=== PATIENT | male | born 1965 | race Caucasian/White ===

== ENCOUNTER 2016-11-28 11:46 | Inpatient (IN) | payer OTHER ==
[2016-11-28 12:06] VITALS: BMI 33.3
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
[2016-11-28] MEDS ORDERED: MAGNESIUM CITRATE 300 ML BOTTLE PO PRN (13:41)
[2016-11-28] MEDS ORDERED: MAGNESIUM HYDROX 2400MG/30ML ORAL SUSPENSION 30 ML CUP PO PRN (13:41)
[2016-11-28] MEDS ORDERED: IBUPROFEN 400 MG TABLET (FP) PO PRN (13:41)
[2016-11-28] MEDS ORDERED: MAG HYDROX/AL HYDROX/SIMETH 30 ML UNIT-DOSE CUP PO PRN (13:41)
[2016-11-28] MEDS ORDERED: ACETAMINOPHEN 325 MG TABLET (FP) PO PRN (13:41)
[2016-11-28] MEDS ORDERED: guaiFENesin/D-METHORPHAN HB 10 ML UNIT-DOSE CUPS PO PRN (13:41)
[2016-11-28] MEDS ORDERED: hydrOXYzine PAMOATE 50 MG CAPSULE (FP) PO PRN (13:41)
[2016-11-28] MEDS ORDERED: P-EPHED 60MG/TRIPROLIDI 2.5MG TABLET PO PRN (13:41)
[2016-11-28] MEDS ORDERED: LOPERAMIDE HCL 2 MG CAPSULE PO PRN (13:41)
[2016-11-28] MEDS ORDERED: NICOTINE POLACRILEX 2 MG GUM BUC PRN (13:41)
[2016-11-28] MEDS ORDERED: MENTHOL/PHENOL 1 EACH UD MM PRN (13:41)
[2016-11-28] MEDS ORDERED: METHADONE HCL 10 MG TABLET (FOR DETOX USE ONLY) PO ONE ×2 (13:50→23:00)
[2016-11-28] MEDS: diazePAM 5 MG TABLET PO PRN ×3 (14:40→22:55)
[2016-11-28] MEDS: NICOTINE 21 MG/24 HOURS TOPICAL PATCH TD SCH (14:42)
[2016-11-28 16:03] LABS: URINE APPEARANCE CLEAR; URINE BILIRUBIN NEGATIVE (NEGATIVE); URINE BLOOD NEGATIVE (NEGATIVE); URINE COLOR YELLOW; URINE GLUCOSE (UA) NEGATIVE (NEGATIVE); URINE KETONE NEGATIVE (NEGATIVE); URINE LEUK ESTERASE NEGATIVE (NEGATIVE); URINE NITRITE NEGATIVE (NEGATIVE); URINE PROTEIN NEGATIVE (NEGATIVE); URINE UROBILINOGEN NEGATIVE E.U./dl (0.2-1.0)
[2016-11-28] MEDS: diphenhydrAMINE HCL 50 MG CAPSULE PO PRN (22:27)
[2016-11-28] MEDS: THIAMINE HCL 100 MG TABLET (FP) PO SCH (22:27)
[2016-11-29] MEDS: diazePAM 5 MG TABLET PO PRN ×4 (05:54→22:40)
[2016-11-29 09:07] LABS: HIV 1 & 2 AB NEGATIVE; HIV 1 AGp24 NEGATIVE
[2016-11-29] MEDS ORDERED: METHADONE HCL 10 MG TABLET (FOR DETOX USE ONLY) PO ONE (10:00)
[2016-11-29 10:36] LABS: MCH 28.7 pg (25.7-33.7); MCHC 32.1 g/dl (32.0-35.9); MEAN CELL VOLUME 89.3 fl (80-96); MEAN PLT VOLUME 8.9 fl (7.5-11.1); PLATELET COUNT 192 K/MM3 (134-434); RDW 13.5 % (11.9-15.9); WHITE BLOOD COUNT 3.5 K/mm3 (4.0-10.0)
--- NOTE | 2016-11-29 10:39 | PN ---
BHS COWS - Scale Resting Pulse: 0= [place] 80 or Below Sweatin= Chills/Flushing Restless Observation: 3= Extraneous Movement Pupil Size: 2= Moderately Dilated Bone or Joint Aches: 2= Severe Diffuse Aches Runny Nose/ Eye Tearin= Nasal Congestion GI Upset > 30mins: 1= Stomach Cramp Tremor Observation of Outstretched Hands: 1= Tremor [place], Not Seen Yawning Observation: 2= >3x During Session Anxiety or Irritability: 2=Irritable/Anxious Goose Flesh Skin: 0=Smooth Skin COWS Score: 15 BHS Progress Note (SOAP) Subjective: ANXIETY,SWEATS/CHILLS,FATIGUE. Objective: 11/29/16 10:38 Vital Signs Temperature 95.8 F L 11/29/16 09:46 Pulse Rate 61 11/29/16 09:46 Respiratory Rate 18 11/29/16 09:46 Blood Pressure 120/82 11/29/16 09:46 O2 Sat by Pulse Oximetry (%) Laboratory Last Values Sodium 141 mmol/L (136-145) 11/29/16 06:00 Potassium 3.9 mmol/L (3.5-5.1) 11/29/16 06:00 Chloride 106 mmol/L (98-107) 11/29/16 06:00 Urine Color Yellow 11/28/16 13:00 Urine Appearance Clear 11/28/16 13:00 Urine pH 6.0 (5.0-8.0) 11/28/16 13:00 Ur Specific [place] 1.018 (1.001-1.035) 11/28/16 13:00 Urine Protein Negative (NEGATIVE) 11/28/16 13:00 Urine Glucose (UA) Negative (NEGATIVE) 11/28/16 13:00 Urine Ketones Negative (NEGATIVE) 11/28/16 13:00 Urine Blood Negative (NEGATIVE) 11/28/16 13:00 Urine Nitrite Negative (NEGATIVE) 11/28/16 13:00 Urine Bilirubin Negative (NEGATIVE) 11/28/16 13:00 Urine Urobilinogen Negative E.U./dl (0.2-1.0) 11/28/16 13:00 Ur Leukocyte Esterase Negative (NEGATIVE) 11/28/16 13:00 HIV 1&2 Antibody Screen Negative 11/28/16 13:00 HIV P24 Antigen Negative 11/28/16 13:00 Assessment: 11/29/16 10:39 WITHDRAWAL SX Plan: CONTINUE DETOX
[2016-11-29] MEDS: PRENATAL VITAMINS W/ FOLIC ACID TABLET (FP) PO SCH (10:48)
[2016-11-29] MEDS: NICOTINE 21 MG/24 HOURS TOPICAL PATCH TD SCH (10:48)
[2016-11-29 10:50] LABS: ALK PHOS 96 U/L (45-117); ANION GAP 7 (8-16); BILIRUBIN,TOTAL 0.4 mg/dL (0.2-1.0); CALCIUM 9.3 mg/dL (8.5-10.1); CO2 28 mmol/L (21-32); GLUCOSE,RANDOM 77 mg/dL (74-106); SGOT/AST 34 U/L (15-37); SGPT/ALT 28 U/L (12-78); TOT PROT 8.1 g/dl (6.4-8.2)
[2016-11-29] MEDS ORDERED: INFLUENZA VACCINE 45 MCG/0.5 ML (MDV 16-17) IM ONE (12:00)
--- NOTE | 2016-11-29 13:31 | EKG ---
Test Reason : Blood Pressure : / mmHG Vent. Rate : 060 BPM Atrial Rate : 060 BPM P-R Int : 126 ms QRS Dur : 086 ms QT Int : 430 ms P-R-T Axes : 045 018 022 degrees QTc Int : 430 ms NORMAL SINUS RHYTHM NORMAL ECG NO PREVIOUS ECGS AVAILABLE Confirmed by ESTHER KAUR, CRYSTAL ([id number]) on 11/29/2016 1:31:22 PM Referred By: Confirmed By:CRYSTAL SANTANA MD
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
[2016-11-29 19:28] LABS: URINE APPEARANCE CLEAR; URINE BILIRUBIN NEGATIVE (NEGATIVE); URINE BLOOD NEGATIVE (NEGATIVE); URINE COLOR LTYELLOW; URINE GLUCOSE (UA) NEGATIVE (NEGATIVE); URINE KETONE NEGATIVE (NEGATIVE); URINE LEUK ESTERASE NEGATIVE (NEGATIVE); URINE NITRITE NEGATIVE (NEGATIVE); URINE PROTEIN NEGATIVE (NEGATIVE); URINE UROBILINOGEN NEGATIVE E.U./dl (0.2-1.0)
[2016-11-29] MEDS: THIAMINE HCL 100 MG TABLET (FP) PO SCH (22:40)
[2016-11-29] MEDS: diphenhydrAMINE HCL 50 MG CAPSULE PO PRN (22:41)
[2016-11-29] MEDS: GABAPENTIN 300 MG CAPSULE (FP) PO SCH (22:41)
[2016-11-29] MEDS: traZODone HCL 50 MG TABLET (FP) PO SCH (22:41)
[2016-11-30] MEDS: diphenhydrAMINE HCL 50 MG CAPSULE PO PRN ×2 (01:07→22:31)
[2016-11-30] MEDS: diazePAM 5 MG TABLET PO PRN ×3 (05:58→22:31)
[2016-11-30] MEDS: GABAPENTIN 300 MG CAPSULE (FP) PO SCH ×3 (05:58→22:30)
[2016-11-30] MEDS ORDERED: METHADONE HCL 5 MG TABLET (FOR DETOX USE ONLY) PO ONE (10:00)
[2016-11-30] MEDS: PRENATAL VITAMINS W/ FOLIC ACID TABLET (FP) PO SCH (10:44)
[2016-11-30] MEDS: NICOTINE 21 MG/24 HOURS TOPICAL PATCH TD SCH (10:44)
--- NOTE | 2016-11-30 11:16 | PN ---
S COWS - Scale Resting Pulse: 0= [place] 80 or Below Sweatin= Chills/Flushing Restless Observation: 3= Extraneous Movement Pupil Size: 2= Moderately Dilated Bone or Joint Aches: 4=Acute Joint/Muscle Pain Runny Nose/ Eye Tearin= Nasal Congestion GI Upset > 30mins: 1= Stomach Cramp Tremor Observation of Outstretched Hands: 1= Tremor [place], Not Seen Yawning Observation: 2= >3x During Session Anxiety or Irritability: 2=Irritable/Anxious Goose Flesh Skin: 0=Smooth Skin COWS Score: 17 BHS Progress Note (SOAP) Subjective: ANXIETY,SWEATS/CHILLS,FATIGUE. Objective: 11/30/16 11:15 Vital Signs Temperature 95.1 F L 11/30/16 10:24 Pulse Rate 61 11/30/16 10:24 Respiratory Rate 17 11/30/16 10:24 Blood Pressure 114/76 11/30/16 10:24 O2 Sat by Pulse Oximetry (%) Laboratory Last Values WBC 3.5 K/mm3 (4.0-10.0) L 11/29/16 06:00 RBC 4.56 M/mm3 (4.00-5.60) 11/29/16 06:00 Hgb 13.1 GM/dL (11.7-16.9) 11/29/16 06:00 Hct 40.7 % (35.4-49) 11/29/16 06:00 MCV 89.3 fl (80-96) 11/29/16 06:00 MCHC 32.1 g/dl (32.0-35.9) 11/29/16 06:00 RDW 13.5 % (11.9-15.9) 11/29/16 06:00 Plt Count 192 K/MM3 (134-434) 11/29/16 06:00 MPV 8.9 fl (7.5-11.1) 11/29/16 06:00 Sodium 141 mmol/L (136-145) 11/29/16 06:00 Potassium 3.9 mmol/L (3.5-5.1) 11/29/16 06:00 Chloride 106 mmol/L (98-107) 11/29/16 06:00 Carbon Dioxide 28 mmol/L (21-32) 11/29/16 06:00 Anion Gap 7 (8-16) L 11/29/16 06:00 BUN 8 mg/dL (7-18) 11/29/16 06:00 Creatinine 1.0 mg/dL (0.7-1.3) 11/29/16 06:00 Creat Clearance w eGFR > 60 (>60) 11/29/16 06:00 Random Glucose 77 mg/dL (74-106) 11/29/16 06:00 Calcium 9.3 mg/dL (8.5-10.1) 11/29/16 06:00 Total Bilirubin 0.4 mg/dL (0.2-1.0) 11/29/16 06:00 AST 34 U/L (15-37) 11/29/16 06:00 ALT 28 U/L (12-78) 11/29/16 06:00 Alkaline Phosphatase 96 U/L (45-117) 11/29/16 06:00 Total Protein 8.1 g/dl (6.4-8.2) 11/29/16 06:00 Albumin 4.0 g/dl (3.4-5.0) 11/29/16 06:00 Urine Color Ltyellow 11/29/16 12:00 Urine Appearance Clear 11/29/16 12:00 Urine pH 7.0 (5.0-8.0) 11/29/16 12:00 Ur Specific [place] 1.009 (1.001-1.035) 11/29/16 12:00 Urine Protein Negative (NEGATIVE) 11/29/16 12:00 Urine Glucose (UA) Negative (NEGATIVE) 11/29/16 12:00 Urine Ketones Negative (NEGATIVE) 11/29/16 12:00 Urine Blood Negative (NEGATIVE) 11/29/16 12:00 Urine Nitrite Negative (NEGATIVE) 11/29/16 12:00 Urine Bilirubin Negative (NEGATIVE) 11/29/16 12:00 Urine Urobilinogen Negative E.U./dl (0.2-1.0) 11/29/16 12:00 Ur Leukocyte Esterase Negative (NEGATIVE) 11/29/16 12:00 RPR Titer Nonreactive (NONREACTIVE) 11/29/16 06:00 HIV 1&2 Antibody Screen Negative 11/28/16 13:00 HIV P24 Antigen Negative 11/28/16 13:00 Assessment: 11/30/16 11:16 WITHDRAWAL SX Plan: CONTINUE DETOX
[2016-11-30] MEDS: THIAMINE HCL 100 MG TABLET (FP) PO SCH (22:29)
[2016-11-30] MEDS: traZODone HCL 50 MG TABLET (FP) PO SCH (22:30)
[2016-12-01] MEDS: diazePAM 5 MG TABLET PO PRN ×2 (05:36→10:19)
[2016-12-01] MEDS: GABAPENTIN 300 MG CAPSULE (FP) PO SCH ×3 (05:36→22:09)
[2016-12-01] MEDS ORDERED: METHADONE HCL 5 MG TABLET (FOR DETOX USE ONLY) PO ONE (10:00)
[2016-12-01] MEDS: PRENATAL VITAMINS W/ FOLIC ACID TABLET (FP) PO SCH (10:19)
[2016-12-01] MEDS: NICOTINE 21 MG/24 HOURS TOPICAL PATCH TD SCH (10:19)
--- NOTE | 2016-12-01 11:19 | PN ---
BHS Progress Note (SOAP) Subjective: ANXIETY,SWEATS, FATIGUE. Objective: 12/01/16 11:19 Vital Signs Temperature 96.6 F L 12/01/16 06:32 Pulse Rate 75 12/01/16 06:32 Respiratory Rate 16 12/01/16 06:32 Blood Pressure 121/83 12/01/16 06:32 O2 Sat by Pulse Oximetry (%) Assessment: 12/01/16 11:19 WITHDRAWAL SX Plan: CONTINUE DETOX
[2016-12-01] MEDS: THIAMINE HCL 100 MG TABLET (FP) PO SCH (22:09)
[2016-12-01] MEDS: traZODone HCL 50 MG TABLET (FP) PO SCH (22:09)
[2016-12-01] MEDS: diphenhydrAMINE HCL 50 MG CAPSULE PO PRN (22:10)
[2016-12-02] MEDS: GABAPENTIN 300 MG CAPSULE (FP) PO SCH ×3 (06:12→22:34)
[2016-12-02] MEDS ORDERED: METHADONE HCL 10 MG TABLET (FOR DETOX USE ONLY) PO ONE (10:00)
--- NOTE | 2016-12-02 10:11 | PN ---
BHS Progress Note (SOAP) Subjective: sweating,interrupted sleep,restless Objective: 12/02/16 10:10 Vital Signs - 8 hr 12/02/16 12/02/16 12/02/16 03:45 07:09 09:43 Temperature 96.8 F L 96.1 F L Pulse Rate 100 H 98 H Respiratory 18 18 20 Rate Blood Pressure 123/92 134/89 Laboratory Tests 11/28/16 11/28/16 11/29/16 13:00 13:00 06:00 WBC 3.5 L RBC 4.56 Hgb 13.1 Hct 40.7 MCV 89.3 MCHC 32.1 RDW 13.5 Plt Count 192 MPV 8.9 Sodium Potassium Chloride Carbon Dioxide Anion Gap BUN Creatinine Creat Clearance w eGFR Random Glucose Calcium Total Bilirubin AST ALT Alkaline Phosphatase Total Protein Albumin Urine Color Yellow Urine Appearance Clear Urine pH 6.0 Ur Specific [place] 1.018 Urine Protein Negative Urine Glucose (UA) Negative Urine Ketones Negative Urine Blood Negative Urine Nitrite Negative Urine Bilirubin Negative Urine Urobilinogen Negative Ur Leukocyte Esterase Negative RPR Titer HIV 1&2 Antibody Screen Negative HIV P24 Antigen Negative 11/29/16 11/29/16 11/29/16 06:00 06:00 12:00 WBC RBC Hgb Hct MCV MCHC RDW Plt Count MPV Sodium 141 Potassium 3.9 Chloride 106 Carbon Dioxide 28 Anion Gap 7 L BUN 8 Creatinine 1.0 Creat Clearance w eGFR > 60 Random Glucose 77 Calcium 9.3 Total Bilirubin 0.4 AST 34 ALT 28 Alkaline Phosphatase 96 Total Protein 8.1 Albumin 4.0 Urine Color Ltyellow Urine Appearance Clear Urine pH 7.0 Ur Specific [place] 1.009 Urine Protein Negative Urine Glucose (UA) Negative Urine Ketones Negative Urine Blood Negative Urine Nitrite Negative Urine Bilirubin Negative Urine Urobilinogen Negative Ur Leukocyte Esterase Negative RPR Titer Nonreactive HIV 1&2 Antibody Screen HIV P24 Antigen labs noted Assessment: 12/02/16 10:11 withdrawal sx. Plan: continue detox
[2016-12-02] MEDS: PRENATAL VITAMINS W/ FOLIC ACID TABLET (FP) PO SCH (10:17)
[2016-12-02] MEDS: NICOTINE 21 MG/24 HOURS TOPICAL PATCH TD SCH (10:17)
[2016-12-02] MEDS: diphenhydrAMINE HCL 50 MG CAPSULE PO PRN (22:34)
[2016-12-02] MEDS: THIAMINE HCL 100 MG TABLET (FP) PO SCH (22:34)
[2016-12-02] MEDS: traZODone HCL 50 MG TABLET (FP) PO SCH (22:34)
[2016-12-03] MEDS: GABAPENTIN 300 MG CAPSULE (FP) PO SCH (05:47)
[2016-12-03] MEDS ORDERED: METHADONE HCL 5 MG TABLET (FOR DETOX USE ONLY) PO ONE (06:00)
[2016-12-03 09:51] VITALS: BP 119/82; PULSE 112; TEMP 98
--- NOTE | 2016-12-03 12:24 | DS ---
[facility] Detox Discharge Summary Admission Date: 11/28/16 Discharge Date: 12/03/16 - History Present History: Opioid Dependence Pertinent Past History: Denies - Physical Exam Results Vital Signs: Vital Signs Temperature 98.0 F 12/03/16 09:50 Pulse Rate 112 H 12/03/16 09:50 Respiratory Rate 20 12/03/16 09:50 Blood Pressure 119/82 12/03/16 09:50 O2 Sat by Pulse Oximetry (%) Pertinent Admission Physical Exam Findings: Withdrawal symptoms Laboratory Tests 11/28/16 11/28/16 11/29/16 13:00 13:00 06:00 WBC 3.5 L RBC 4.56 Hgb 13.1 Hct 40.7 MCV 89.3 MCHC 32.1 RDW 13.5 Plt Count 192 MPV 8.9 Sodium Potassium Chloride Carbon Dioxide Anion Gap BUN Creatinine Creat Clearance w eGFR Random Glucose Calcium Total Bilirubin AST ALT Alkaline Phosphatase Total Protein Albumin Urine Color Yellow Urine Appearance Clear Urine pH 6.0 Ur Specific [place] 1.018 Urine Protein Negative Urine Glucose (UA) Negative Urine Ketones Negative Urine Blood Negative Urine Nitrite Negative Urine Bilirubin Negative Urine Urobilinogen Negative Ur Leukocyte Esterase Negative RPR Titer HIV 1&2 Antibody Screen Negative HIV P24 Antigen Negative 11/29/16 11/29/16 11/29/16 06:00 06:00 12:00 WBC RBC Hgb Hct MCV MCHC RDW Plt Count MPV Sodium 141 Potassium 3.9 Chloride 106 Carbon Dioxide 28 Anion Gap 7 L BUN 8 Creatinine 1.0 Creat Clearance w eGFR > 60 Random Glucose 77 Calcium 9.3 Total Bilirubin 0.4 AST 34 ALT 28 Alkaline Phosphatase 96 Total Protein 8.1 Albumin 4.0 Urine Color Ltyellow Urine Appearance Clear Urine pH 7.0 Ur Specific [place] 1.009 Urine Protein Negative Urine Glucose (UA) Negative Urine Ketones Negative Urine Blood Negative Urine Nitrite Negative Urine Bilirubin Negative Urine Urobilinogen Negative Ur Leukocyte Esterase Negative RPR Titer Nonreactive HIV 1&2 Antibody Screen HIV P24 Antigen Labs noted - Treatment Hospital Course: Detox Protocol Followed, Detoxed Safely, Responded well, Discharged Condition Good - Medication Discharge Medications: Ambulatory Orders Gabapentin 800 mg PO TID 11/28/16 Trazodone HCl [Desyrel -] 150 mg PO HS 11/28/16 Gabapentin [Neurontin -] 300 mg PO TID #90 capsule 02/08/17 Trazodone HCl [Desyrel -] 50 mg PO HS #30 tablet 11/29/16 - Diagnosis (1) Anxiety and depression Status: Chronic (2) Nicotine dependence Status: Chronic (3) Opioid dependence with withdrawal Status: Acute - AMA Did Patient Leave Against Medical Advice: No
== END 2016-12-03 09:32 | disposition home or self-care (01) | DRG 773 ==
LOC: YASAS 11:46 → Y3N 13:40
PROVIDERS: ADMIT Internal Medicine; ATTEND Internal Medicine
PROC: HZ2ZZZZ Detoxification Services for Substance Abuse Treatment (ICD-10-PCS; principal; 2016-12-03)
DX: F11.23 Opioid dependence with withdrawal (principal); F14.20 Cocaine dependence, uncomplicated; F17.210 Nicotine dependence, cigarettes, uncomplicated; F15.10 Other stimulant abuse, uncomplicated; F41.8 Other specified anxiety disorders; B18.2 Chronic viral hepatitis C; G47.00 Insomnia, unspecified; R63.4 Abnormal weight loss; Z68.33 Body mass index [BMI] 33.0-33.9, adult
CPT/HCPCS: 36415; 80053; 81003; 85027; 86593; 87389; 93005; 93010